=== PATIENT | male | born 1960 | race Hispanic/Latino ===

== ENCOUNTER 2022-04-08 08:55 | Emergency (ER) | payer OTHER ==
[~2022-04-08] VITALS: Ht 172.7 cm; Wt 68.0 kg
[2022-04-08 09:17] LABS: HEMATOCRIT 45.8 % (42-54); MEAN CORPUSCULAR HEMOGLOBIN 31.1 pg (27.0-33.0); MEAN CORPUSCULAR HGB CONC 32.3 g/dL (32.0-36.0); MEAN CORPUSCULAR VOLUME 96.2 fL (79-99); PLATELET COUNT (AUTO) 192 K/uL (130-400); RED BLOOD CELL COUNT(AUTO) 4.76 MIL/uL (4.50-6.20); RED CELL DISTRIBUTION WIDTH 12.8 % (11.0-15.5); WHITE BLOOD COUNT (AUTO) 7.6 K/uL (4.8-10.8)
[2022-04-08 09:30] LABS: POTASSIUM 4.5 mmol/L (3.5-5.1)
[2022-04-08 09:34] LABS: BILIRUBIN,TOTAL 0.4 mg/dL (0.2-1.0); TOTAL PROTEIN, SERUM 6.9 g/dL (6.0-8.3)
[2022-04-08 10:45] LABS: BAND NEUTROPHILS % (MANUAL) 3 % (0-2); BASOPHILS % (MANUAL) 2 % (0-2); EOSINOPHILS % (MANUAL) 2 % (1-6); LYMPHOCYTES % (MANUAL) 28 % (22-44); MONOCYTES % (MANUAL) 5 % (2-9); SEGMENTED NEUTROPHILS % 60 % (40-70)
[2022-04-08 10:46] LABS: MAN.DIFF COMMENT-IMPRESSION MANUAL DIFFERENTIAL; PLATELET MORPHOLOGY COMMENT ADEQUATE
[2022-04-08] MEDS ORDERED: PRED20TA3 PO (10:54)
[2022-04-08] MEDS ORDERED: PREDNISONE 20 MG TABLET PO ONE (11:00)
[2022-04-08 11:02] VITALS: BP 125/71
[2022-04-08] MEDS ORDERED: PREDNISONE 20 MG TABLET ONE (11:03)
== END 2022-04-08 11:26 | disposition home or self-care (01) ==
LOC: EDH 08:55
DX: G51.0 Bell's palsy (principal)
CPT/HCPCS: 36415; 70450; 80053; 84484; 85025; 93005